=== PATIENT | female | born 2000 | race Caucasian/White ===

== ENCOUNTER 2022-07-23 11:47 | Outpatient (CLI) | payer OTHER, SELFPAY ==
[2022-07-23 12:13] LABS: Potassium 4.1 mmol/L (3.4-5.0)
== END 2022-07-23 11:48 | disposition home or self-care (01) ==
LOC: ANHLAB 11:55
DX: Z51.81 Encounter for therapeutic drug level monitoring (principal); Z79.899 Other long term (current) drug therapy
CPT/HCPCS: 36415; 84132